=== PATIENT | female | born 1935 | race Caucasian/White ===

== ENCOUNTER 2017-03-26 07:23 | Inpatient (IN) | payer MEDICAID ==
[2017-03-26] VITALS (13 sets, daily range): BP systolic 103–165; BP diastolic 46–87
[~2017-03-26] VITALS: Ht 152.4 cm; Wt 60.1 kg
[~2017-03-26 07:23] MED LIST: SODIUM CHLORIDE 0.9% 1,000 ML IV ONE
[2017-03-26] MEDS ORDERED: ASPI-556 PO (07:44)
[2017-03-26] MEDS ORDERED: TERB250 PO (07:44)
[2017-03-26] MEDS ORDERED: OLAN10TA3 PO (07:44)
[2017-03-26] MEDS ORDERED: METF500T4 PO (07:44)
[2017-03-26] MEDS ORDERED: METO25XL PO (07:44)
[2017-03-26] MEDS ORDERED: LISI-661 PO (07:44)
[2017-03-26] MEDS ORDERED: OXYB5 PO (07:44)
[2017-03-26] MEDS ORDERED: CALC1TAB97 PO (07:44)
[2017-03-26] MEDS ORDERED: OMEG-50 PO (07:44)
[2017-03-26] MEDS ORDERED: AMLO2.5T PO (07:44)
[2017-03-26] MEDS ORDERED: LOVA20 PO (07:44)
[2017-03-26] MEDS ORDERED: CYAN250014 PO (07:44)
[2017-03-26 08:04] LABS: INR 1.1 (0.9-1.1); PROTHROMBIN TIME 11.3 SEC (9.4-11.6)
[2017-03-26 08:21] LABS: BASOPHILS # (AUTO) 0.03 K/uL (0.00-0.20); BASOPHILS % (AUTO) 0.3 % (0.0-2.0); EOSINOPHILS # (AUTO) 0.14 K/uL (0.00-0.70); EOSINOPHILS % (AUTO) 1.96 % (1.0-6.0); HEMATOCRIT 34.8 % (36-46); HEMOGLOBIN 11.5 g/dL (12.0-16.0); LYMPHOCYTES # (AUTO) 1.2 K/uL (1.0-4.8); MEAN CORPUSCULAR HEMOGLOBIN 30.5 pg (26.0-34.0); MEAN CORPUSCULAR VOLUME 92 fL (80-100); MONOCYTES # (AUTO) 0.4 K/uL (0.1-1.0); MONOCYTES % (AUTO) 4.9 % (2.0-9.0); NEUTROPHILS # (AUTO) 5.6 K/uL (1.8-7.7); NEUTROPHILS % (AUTO) 76.9 % (40.0-70.0); PLATELET COUNT (AUTO) 309 K/uL (150-450); RED BLOOD CELL COUNT(AUTO) 3.77 MIL/uL (4.00-5.20); RED CELL DISTRIBUTION WIDTH 14.6 % (11.5-14.5)
[2017-03-26 08:36] LABS: ANION GAP 8 mmol/L (8-16); CARBON DIOXIDE 28 mmol/L (22-29); CHLORIDE 103 mmol/L (98-107); CREATININE 0.63 mg/dL (0.60-1.30); GLOMERULAR FILTR. RATE CALC > 60 mL/min (>60); GLUCOSE,RANDOM 123 mg/dL (70-110); POTASSIUM 3.9 mmol/L (3.5-5.1); SODIUM SERUM 139 mmol/L (136-145); UREA NITROGEN, BLOOD 17 mg/dL (7-18)
[2017-03-26] MEDS ORDERED: SODIUM BICARBONATE 50 MEQ/50 ML VIAL ONE (09:01)
[2017-03-26] MEDS ORDERED: HEPARIN SODIUM 1000 UNITS/NS 1,000 ML ONE (09:01)
[2017-03-26] MEDS ORDERED: LIDOCAINE HCL/PF 1% 30 ML VIAL ONE (09:01)
[2017-03-26] MEDS ORDERED: IOHEXOL 300 MG/ML 150 ML VIAL ONE (09:01)
[2017-03-26] MEDS ORDERED: HEPARIN SODIUM 1000 UNITS/NS 1,000 ML IARTER ONE (09:31)
[2017-03-26] MEDS ORDERED: VERAPAMIL HCL 2.5 MG/ML 2 ML VIAL ONE (09:44)
[2017-03-26] MEDS ORDERED: NITROGLYCERIN 50 MG/D5% WATER 250 ML ONE (09:44)
[2017-03-26] MEDS ORDERED: IOHEXOL 300 MG/ML 50 ML VIAL ONE (09:44)
[2017-03-26] MEDS ORDERED: LIDOCAINE 1% 30 ML/SOD BICARB 8.4% 4 ML SQ ONE (09:45)
[2017-03-26] MEDS ORDERED: IOHEXOL 300 MG/ML 150 ML VIAL IARTER ONE (09:45)
[2017-03-26] MEDS ORDERED: TICAGRELOR 90 MG TABLET ONE (09:49)
[2017-03-26] MEDS ORDERED: ASPIRIN 325 MG TABLET ONE (09:49)
[2017-03-26] MEDS ORDERED: IOHEXOL 300 MG/ML 100 ML VIAL ONE (09:55)
[2017-03-26] MEDS ORDERED: IOHEXOL 300 MG/ML 50 ML VIAL IARTER ONE (10:00)
[2017-03-26] MEDS ORDERED: TICAGRELOR 90 MG TABLET PO ONE (10:00)
[2017-03-26] MEDS ORDERED: HEPARIN SODIUM,PORCINE 5,000 UNITS/ML VIAL IVP ONE (10:00)
[2017-03-26] MEDS ORDERED: ASPIRIN 325 MG TABLET PO ONE (10:00)
[2017-03-26] MEDS ORDERED: IOHEXOL 300 MG/ML 100 ML VIAL IARTER ONE (10:15)
[2017-03-26] MEDS ORDERED: NITROGLYCERIN/D5W 50 MG/250 ML IV BOTTLE ICOR ONE (10:15)
[2017-03-26] MEDS ORDERED: VERAPAMIL HCL 2.5 MG/ML 2 ML VIAL ICOR ONE (10:15)
[2017-03-26] MEDS ORDERED: INSULIN ASPART 100 UNITS/ML SQ PRN (10:30)
[2017-03-26] MEDS ORDERED: DEXTROSE 50%-WATER 25 GM/50 ML SYRINGE IVP PRN (10:30)
[2017-03-26] MEDS: AmLODIPine BESYLATE 5 MG TABLET PO SCH (11:39)
[2017-03-26] MEDS: LISINOPRIL 10 MG TABLET PO SCH (12:27)
[2017-03-26 18:03] LABS: GLUCOSE,POINT OF CARE 107 MG/DL (70-110)
[2017-03-26 18:03] LABS: GLUCOSE,POINT OF CARE 104 MG/DL (70-110)
[2017-03-26] MEDS: TICAGRELOR 90 MG TABLET PO SCH (20:52)
[2017-03-26] MEDS: OXYBUTYNIN CHLORIDE 5 MG TABLET PO SCH (20:52)
[2017-03-26] MEDS ORDERED: METOPROLOL SUCCINATE 25 MG ER TABLET PO SCH (21:00)
[2017-03-26] MEDS ORDERED: ATORVASTATIN CALCIUM 40 MG TABLET PO SCH (21:00)
[2017-03-26] MEDS ORDERED: OLANZapine 10 MG TABLET PO SCH (21:00)
[2017-03-27 04:38] VITALS: BP 114/66
[2017-03-27 07:13] VITALS: BP 132/70
[2017-03-27] MEDS ORDERED: ASPIRIN 81 MG CHEWABLE TABLET PO SCH (09:00)
[2017-03-27] MEDS: TICAGRELOR 90 MG TABLET PO SCH (09:51)
[2017-03-27] MEDS: LISINOPRIL 10 MG TABLET PO SCH (09:51)
[2017-03-27] MEDS: OXYBUTYNIN CHLORIDE 5 MG TABLET PO SCH (09:51)
[2017-03-27] MEDS: AmLODIPine BESYLATE 5 MG TABLET PO SCH (09:52)
[2017-03-27 11:10] VITALS: BP 132/72
[2017-03-27] MEDS ORDERED: TICA90TA PO (13:14)
[2017-03-27] MEDS ORDERED: ATOR40TA28 PO (13:15)
[2017-03-27 19:57] LABS: GLUCOMETER DEV NAME(LOC) 5S 2N; GLUCOSE,POINT OF CARE 174 MG/DL (70-110)
[2017-03-27 19:57] LABS: GLUCOMETER DEV NAME(LOC) 5S 2N; GLUCOSE,POINT OF CARE 115 MG/DL (70-110)
[2017-03-27 19:58] LABS: GLUCOMETER DEV NAME(LOC) 5S 2N; GLUCOSE,POINT OF CARE 112 MG/DL (70-110)
== END 2017-03-27 13:53 | disposition home or self-care (01) | DRG 175 ==
LOC: CATHLAB 07:23 → ICU 07:24 → 5N 17:55
PROVIDERS: ADMIT Internal Medicine Cardiovascular Disease; ATTEND Internal Medicine Cardiovascular Disease
PROC: 027035Z Dilation of Coronary Artery, One Artery with Two Drug-eluting Intraluminal Devices, Percutaneous Approach (ICD-10-PCS; principal; 2017-03-26)
PROC: 4A023N7 Measurement of Cardiac Sampling and Pressure, Left Heart, Percutaneous Approach (ICD-10-PCS; 2017-03-26)
PROC: B2111ZZ Fluoroscopy of Multiple Coronary Arteries using Low Osmolar Contrast (ICD-10-PCS; 2017-03-26)
PROC: B2151ZZ Fluoroscopy of Left Heart using Low Osmolar Contrast (ICD-10-PCS; 2017-03-26)
DX: I25.10 Atherosclerotic heart disease of native coronary artery without angina pectoris (principal); E11.9 Type 2 diabetes mellitus without complications; I10 Essential (primary) hypertension; F29 Unspecified psychosis not due to a substance or known physiological condition; E78.5 Hyperlipidemia, unspecified; Z79.4 Long term (current) use of insulin; Z79.82 Long term (current) use of aspirin; Z79.899 Other long term (current) drug therapy
CPT/HCPCS: 82962; 87081; 92920; 92928; 93005; J1644; J3490; J7030; Q9967